=== PATIENT | male | born 1985 ===

== ENCOUNTER 2024-12-25 05:55 | Day surgery (SDC) | payer OTHER ==
[~2024-12-25 05:55] MED LIST: AZELASTINE137 MCG/0. NASAL; BREO ELLIPTA 21 EACH IH; CHLORTHALIDONE50 MG PO; COZAAR100 MG PO; PRAMIPEXOLE0.125 MG PO; PROAIR RESPICL90 MCG IH; SYNTHROID88 MCG PO; VASCEPA1 GM PO
[2024-12-25] MEDS ORDERED: METRONIDAZOLE/SODIUM CHLORIDE 500 MG/100 ML PIGGYBACK IV ONE (07:27)
[2024-12-25] MEDS ORDERED: CEFTRIAXONE SODIUM 2,000 MG VIAL ONE (07:27)
[2024-12-25] MEDS ORDERED: HEMOSTATIC MATRIX 1 KIT KIT TOP ONE (08:14)
[2024-12-25] MEDS ORDERED: LIDOCAINE HCL 1%/EPINEPHRINE 20ML VIAL IJ ONE (08:15)
[2024-12-25] MEDS ORDERED: DIBUCAINE 30 GM TUBE ONE (08:15)
[2024-12-25] MEDS ORDERED: POVIDONE-IODINE 118 ML BOTT TOP ONE (08:15)
[2024-12-25] MEDS ORDERED: BUPIVACAINE HCL/MPF 0.5% 30ML VIAL ONE (08:15)
== END 2024-12-25 15:50 | disposition home or self-care (01) ==
LOC: CIR.AMB 05:55 → SURH 09:00 → CIR.AMB 09:00 → EDSTATUS 09:00 → CIR.AMB 13:15
PROVIDERS: ATTEND Colon & Rectal Surgery
DX: K60.321 Anal fistula, complex, initial (principal); Z88.6 Allergy status to analgesic agent

== ENCOUNTER → 2025-01-02 | Emergency (ER) | payer OTHER | END | disposition left against medical advice (07) | LOC: ER 14:57 | DX: Z53.21 Procedure and treatment not carried out due to patient leaving prior to being seen by health care provider (principal) ==